=== PATIENT | female | born 1965 | race Caucasian/White ===

== ENCOUNTER 2020-04-21 12:28 | Emergency (ER) | payer OTHER ==
[~2020-04-21] VITALS: Ht 162.5 cm; Wt 95.3 kg
== END 2020-04-21 16:17 | disposition home or self-care (01) ==
LOC: ED 12:28 → EDSEX 12:32 → ED 12:32
DX: T46.5X1A Poisoning by other antihypertensive drugs, accidental (unintentional), initial encounter (principal); T44.7X1A Poisoning by beta-adrenoreceptor antagonists, accidental (unintentional), initial encounter; T46.1X1A Poisoning by calcium-channel blockers, accidental (unintentional), initial encounter; I10 Essential (primary) hypertension; Z88.6 Allergy status to analgesic agent; Z91.040 Latex allergy status; Y92.89 Other specified places as the place of occurrence of the external cause